=== PATIENT | female | born 1985 | race Two or more races ===

== ENCOUNTER → 2025-08-06 15:53 | Outpatient (AMB) | payer OTHER, SELFPAY ==
--- NOTE | 2025-08-06 15:54 | A.OFFVIS_ITS ---
Intake Visit Reasons: 6m migraine Accompanied by: Spouse Allergies No Known Allergies Allergy (Verified 08/06/25 16:00) Medication List - Last Reconciled 08/06/25 by Eve Cordova CNP atorvastatin 20 mg PO DAILY [id number]-[id number] 50-325-40 mg 1 - 2 tabs PO DAILY 30 days cholecalciferol (vitamin D3) 50 mcg PO DAILY citalopram 10 mg PO DAILY clonazepam 1 mg PO TID PRN doxepin 10 mg PO BEDTIME fludrocortisone mg PO galcanezumab-gnlm (Emgality Pen) 120 mg subcut QMONTH 30 days hydroxyzine HCl 25 mg PO BID ibuprofen 800 mg PO BID PRN ipratropium-albuterol 20-100 mcg/actuation (Combivent Respimat) 1 puff inhalation QID lamotrigine 200 mg PO BID loratadine 10 mg PO DAILY lurasidone 120 mg PO DAILY oxcarbazepine mg PO umeclidinium-vilanterol 62.5-25 mcg/actuation (Anoro Ellipta) 1 ea inhalation DAILY HPI Comments Details: 40-year-old woman with 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 Emgality was not helping as much anymore and headaches were worse. She said she did not understand how she was supposed to manage headaches with only 12 butalbital/month. Migraines were happening about 4x/week with photophobia, sonophobia, nausea, and sometimes vomiting. [facility] Medical History (Updated 08/06/25 @ 15:58 by Eve Cordova CNP) Depression Anxiety Dyskinesia Muscular dystrophy Insomnia Migraine Review of Systems Const Denies chills, Denies daytime sleepiness, Denies difficulty sleeping, Denies fatigue, Denies fever(s), Denies frequent falls, Reports headache(s), Denies increased appetite, Denies poor appetite, Denies snoring, Denies weakness, Denies weight gain and Denies weight loss Eyes Denies loss of vision ENT Denies vertigo, Denies dizziness and Reports headache(s) Card Denies chest pain at rest, Denies chest pain with activity, Denies syncope, Denies leg edema and Denies palpitations Resp Denies snoring GI Denies constipation, Denies heartburn, Denies diarrhea and Denies nausea Denies urinary frequency, Denies urinary incontinence and Denies urinary urgency Musc Denies abnormal gait, Denies numbness and Denies tingling Skin/Breast Denies dry skin and Denies rash Neuro Denies abnormal gait, Denies vertigo, Denies dizziness, Denies syncope, Denies frequent falls, Reports headache(s), Denies lack of coordination, Denies loss of vision, Denies memory loss, Denies numbness, Denies restless legs, Denies seizure-like activity, Denies tingling, Denies paresthesias, Denies tremor(s) and Denies weakness Psych Denies anxiety, Denies depression, Denies auditory hallucinations, Denies memory loss, Denies visual hallucinations and Denies suicidal ideation Endo Denies fatigue and Denies palpitations Physical Exam Const Other: General Appearance:? normal, in no acute distress. Skin:? no rashes, no significant birthmarks. Heart:? S1, S2 normal, no murmurs. Lungs:? clear anteriorly and posteriorly. Extremities:? no edema. Psych:? alert, oriented, cognitive function intact, cooperative with exam. Neuro Other: Mental Status:?Normal attention, orientation, memory and affect.? Cranial Nerves:?Pupils are equal, round and reactive to light. External occular muscles are intact. Visual olmstead are full. Face is symmetrical. Facial sens ations are normal. Tongue is midline. Palate elevates symmetrically. Shoulder shrugging is normal. Hearing to bedside conversation is normal. Sensory Exam:?....? Coordination:?No ataxia,?no titubation.? Gait Exam: Within normal limits. Extrapyramidal System:?No tremor, rigidity with normal facial expressions.? Pronator Drift:?Not present.? Involuntary Movements:?No tremors seen.? Speech:?Normal.? Results Reviewed Results Reviewed: CTA brain at [facility] in Nov 2023: R 3mm cavernous ICA aneurysm, mod cortical fronto-pareital and vermian atrophy MRI brain [facility] at [facility] in May 2023: R basis pontis lesion hyperintense on FLAIR and hypointense on T1, mod b/l parietal cortical atrophy, mild cerebellar atrophy MRA brain at [facility] in 2020: R pontine cavernous malformation, 2mm ICA aneursym CTA brain at [facility] in 2020: 3.5mm R ICA aneurysm. Assessment & Plan Assessment & Plan (1) Basilar migraine: Code(s): G43.109 - Migraine with aura, not intractable, without status migrainosus Category: Medical Plan: Emgality was no longer helping with migraines. Initially, migraines were down to about 2x/week, but were now happening about 4x/week and were associated with photophobia, sonophobia, nausea, and vomiting. She tried and failed multiple other medications including propranalol, depakote, topiramate, Ajovy, Aimovig, and Ubrelvy. She was taking fludrocortisone for low blood pressure, and therefore other blood pressure medications (such as verapamil) were contraindicated. She also reports trying trigger point injections in the past without improvement. She was not interested in Botox due to fear of needles. Stop Emgality. Start Nurtec 75mg 1 tablet every other day, use/side effects reviewed. Start metoclopramide 10mg 1 tablet as needed for nausea/vomiting, use/side effects reviewed. Continue asakokgxwe-VXXM-ejhd 50-325-40mg 1-2 tablets as needed for headache #12 for 30 days. MRI brain ordered given worsening headaches, history of cavernous malformation, ICA aneursym. (2) Migraine without aura: Code(s): G43.009 - Migraine without aura, not intractable, without status migrainosus Category: Medical Qualifiers: Status migrainosus presence: without status migrainosus Intractability: not intractable Qualified Code(s): G43.009 - Migraine without aura, not intractable, without status migrainosus (3) Cavernous malformation: Code(s): Q28.3 - Other malformations of cerebral vessels Category: Medical (4) Cerebral aneurysm: Code(s): I67.1 - Cerebral aneurysm, nonruptured Category: Medical Plan Meds tried: Propranalol, Depakote, Topiramate, cannot take BP meds, Ajovy, Aimovig, Emgality, Ubrelvy Orders: Orders MR head/brain wo con Today G43.109 - Migraine with aura, not intractable, without status migrainosus, I67.1 - Cerebral aneurysm, nonruptured, Q28.3 - Ot her malformations of cerebral vessels Medications: New metoclopramide HCl (Reglan) 10 mg PO DAILY PRN 20 tabs 3RF nausea and vomiting 30 days rimegepant (Nurtec ODT) 75 mg PO Q OTHER DAY 15 tabs 3RF migraine headache 30 days Discontinued galcanezumab-gnlm (Emgality Pen) Discontinued Reason: Doctor's Order 120 mg subcut QMONTH 30 days 1 mL 5RF Coding Level of Care Code Est Pt Level 4 (42811) Diagnoses Basilar migraine G43.109 Migraine without aura and without status migrainosus, not intractable G43.009 Status migrainosus presence: without status migrainosus Intractability: not intractable Cavernous malformation Q28.3 Cerebral aneurysm I67.1
--- OUTSIDE RECORDS SUMMARY | 2025-08-06 18:21 | XMS_ITS | Data Portability ---
Author Organization [place] - [employer] [facility], [facility] Transfer Driver Address [address] [place] [address] Care Team Providers Care Tube Coremaker Name Role Phone RONEY BURGOS Machine Candle Molder PAVEL LUNSFORD Primary Care Provider Unavailabl e Assessment No assessment recorded. Plan of Treatment Reminders Order Date Submit Date Provider Last Modified By Organization Details Last Modified Time Details Appointments None recorded. Lab None recorded. Referral None recorded. Procedures None recorded. Surgeries None recorded. Imaging MR, angiogram, head, w/o contrast - Follow-up lesion noticed previously possible cavernous lesion 2020 021 [facility] (Central Scheduling), [address] [place] [address], [address], 1 13:36:41 US, duplex, venous, lower extremity, unilateral - pain posterior left knee and left calf over the last 3-4 days, rule out DVT versus varicose veins. 2019 020 [facility] (Central Scheduling), [address] [place] [address], [address], 0 14:27:50 Medication Orders Augmentin 875 mg-125 mg tablet 2020 021 [facility], [address] [place] [address], [place], [address], 1 16:14:18 fluconazol e 150 mg tablet 2020 021 [facility], [address] [place] [address], [place], [address], 1 10:05:27 ropinirole 0.5 mg tablet 2019 [email or web address] Not available 0 13:20:47 oxcarbazep ine 300 mg tablet 2019 ajoslin Not available 0 13:20:48 ibuprofen 800 mg tablet 2019 020 ajoslin Not available 0 10:15:41 Patient TargetsNo targets recorded. Patient Instructions Encounter Date Encounter Id Patient Instructions Last Modified By Organization Details Last Modified Time 06/26/2020 [id number] This note was created with the assistance of [employer] speech recognition software and may include typographical or grammatical errors or unintentional words/phrase substitutions Personal protective equipment used during exam [email or web address] Not available 06/28/2020 17:08:53 08/04/2020 [id number] This note was created with the assistance of [employer] speech recognition software and may include typographical or grammatical errors or unintentional words/phrase substitutions. Personal protective equipment used during exam ajoslin Not available 08/04/2020 13:34:36 10/22/2020 [id number] This note was created with the assistance of [employer] speech recognition software and may include typographical or grammatical errors or unintentional words/phrase substitutions Call completed 11:33 a.m., 17 minutes [email or web address] Not available 10/25/2020 08:41:41 11/07/2020 [id number] Acute Sinusitis: Care Instructions Not available 11/07/2020 10:04:00 Total time spent today was 25 minutes which includes a review and interpretation of all labs, tests, consults and medications, medically appropriate examinations and/or evaluation, ordering tests, medications and/or procedures, documenting clinical information in EMR, time spent counseling and educating the patient along with coordination of care. Not available 11/07/2020 10:03:02 Reason for Referral None Reported. Results Created Date Observation Date Name Description Value Unit Range Abnormal Flag Note LastModifiedBy Organization Detail LastModifiedTime 08/04/2008/04/2020 drug scree n, urine creatinine urine (drug screen) 235.0 mg/dL Not Available [address] [place] [address] [place] [address], [address], 08/08/2020 14:04:53 08/04/20 20 08/04/2020 drug scree n, urine amphetamine screen urine Negati ve negati ve Not Available [address] [place] [address], [address], 08/08/2020 14:04:53 08/04/20 20 08/04/2020 drug scree n, urine benzodiazepi jl screen urine Positi ve negati ve abnormal The Benzo diaze pine scree n has poor sensi tivit y for Loraz epam, Midaz olam and Chlor diaze poxid e and may give false negat miguel resul ts for these drugs . Not Available [address] [place] [address], [address], 08/08/2020 14:04:53 08/04/20 20 08/04/2020 drug scree n, urine cocaine screen urine Negati ve negati ve Not Available [address] [place] [address], [address], 08/08/2020 14:04:53 08/04/20 20 08/04/2020 drug scree n, urine methadone screen urine Negati ve negati ve Not Available [address] [place] [address], [address], 08/08/2020 14:04:53 08/04/20 20 08/04/2020 drug scree n, urine opiate screen urine Negati ve negati ve Not Available [address] [place] [address], [address], 08/08/2020 14:04:53 08/04/20 20 08/04/2020 drug scree n, urine THC (cannabinoid ) screen urine Positi ve negati ve abnormal Not Available [address] [place] [address], [address], 08/08/2020 14:04:53 08/04/20 20 08/04/2020 drug scree n, urine oxycodone screen urine Negati ve negati ve Not Available [address] [place] [address] Drawing Station [address] [place] [address], [address], 08/08/2020 14:04:53 08/04/20 20 08/04/2020 drug scree n, urine buprenorphin e screen urine Negati ve negati ve Quali tativ e drug of abuse resul ts are based on immun oscre en proce dures and are not confi rmed. They are for medic al treat ment purpo ses only and must not be used non-m edica lly for emplo yment or legal testi ng. A posit miguel resul t is obtai lucretia for each class of drug at [facility] cut-o ff sondra ntrat ions: Amphe tamin es >1000 ng/ml Benzo diaze pines >200 ng/ml Bupre norph brianda >5 ng/ml Canna binoi ds(TH C) >50 ng/ml Cocai ne >300 ng/ml Metha done >300 ng/ml Opiat es >300 ng/ml Oxyco done >100 ng/ml More infor orlin terrazas is avail able on the [facility] Medic al Staff Benjie l under the Pain Manag ement /Drug s of Abuse Toxic ology Forms tab or by alex cing the Lab direc tly at [phone]. Not Available [address] [place] [address] Drawing Station [address] [place] [address], [address], 08/08/2020 14:04:53 08/04/2008/05/2020 benzo diaze pines , quant urine alprazolam conf, ur Not Detect ed NG/mL Not Available [address] [place] [address] Drawing Station [address] [place] [address], [address], 08/08/2020 14:04:53 08/04/2008/05/2020 benzo diaze pines , quant urine A-hydroxyalp razolam conf, ur Not Detect ed NG/mL Not Available [address] [place] [address] Drawing Station [address] [place] [address], [address], 08/08/2020 14:04:53 08/04/2008/05/2020 benzo diaze pines , quant urine clonazepam conf, ur Not Detect ed NG/mL Not Available [address] [place] [address], [address], 08/08/2020 14:04:53 08/04/20 20 08/05/2020 benzo diaze pines , quant urine lorazepam conf, ur Not Detect ed NG/mL Not Available [address] [place] [address], [address], 08/08/2020 14:04:53 08/04/20 20 08/05/2020 benzo diaze pines , quant urine diazepam conf, ur Not Detect ed NG/mL Not Available [address] [place] [address], [address], 08/08/2020 14:04:53 08/04/20 20 08/05/2020 benzo diaze pines , quant urine nordiazepam conf, ur Not Detect ed NG/mL Not Available [address] [place] [address], [address], 08/08/2020 14:04:53 08/04/20 20 08/05/2020 benzo diaze pines , quant urine oxazepam conf, ur Not Detect ed NG/mL Not Available [address] [place] [address], [address], 08/08/2020 14:04:53 08/04/20 20 08/05/2020 benzo diaze pines , quant urine temazepam conf, ur Not Detect ed NG/mL Not Available [address] [place] [address], [address], 08/08/2020 14:04:53 08/04/20 20 08/05/2020 benzo diaze pines , quant urine drug comment, urine See Text This test was devel oped and its serge tical perfo rmanc e jose cteri stics have been deter mined by [facility]. It has not been clear ed or appro j carlos by the [place] Food and Drug Admin istra tion. The Labor atory is regul ated under CLIA as quali fied to perfo rm high- compl exity testi ng. This repor t is inten ded for the use in clini figueroa monit oring or manag ement of patie nts. It is not inten ded for use in emplo yment -rela driss testmorgan ng. Not Available [address] [place] [address], [address], 08/08/2020 14:04:53 08/04/20 20 08/08/2020 benzo diaze pines , quant urine 7-aminoclona zepam conf, ur 1474 NG/mL Cutof f: 25ng/ mL Note: Clona zepam is a medic ation avail able by [facility] chemo on. 7-Ami noclo nazep am is a metab olite of clona zepam . Not Available [address] [place] [address], [address], 08/08/2020 14:04:53 11/19/19 21 11/19/2020 bun/c reati nine, ratio , serum blood urea nitrogen (BUN) 17 mg/dL 4-18 normal Not Available [address] [place] [address] Draw[address] [place] [address], [address], 11/19/2020 16:45:23 11/19/19 21 11/19/2020 bun/c reati nine, ratio , serum creatinine 0.79 mg/dL 0.00-1 .20 normal Not Available [address] [place] [address], [address], 11/19/2020 16:45:23 11/19/19 21 11/19/2020 bun/c reati nine, ratio , serum est.glomerul ar filtration rate > 60 Units : mL/mi n/1.7 3 m2 Estim ated GFR (eGFR ) vashtiul d not be used for patie nts with acute kidne y injur y or ESRD (crea boubacar e vashtiul d be at stead y state and stabl e to use). eGFR is calcu lated using the 2009 CKD-E PI creat inine equat ion, which is now the recom bora d equat ion to estim ate GFR based on creat inine per lates t KDIGO (Kidn ey Disea se Impro ving Globa l Outco mes) Guide lines . KDIGO recom mends CKD now be class ified based on cause , GFR categ ory, and album inuri a categ ory. GFR categ ories will not be repor driss by the lab for G1 or G2 (eGFR >60). GFR categ ories shoul d be assig lucretia as: eGFR 45-59 = G3a (mild ly to moder ately decre ased) , eGFR 30-44 = G3b (mode ratel y to sever thad decre ased) , eGFR 15-29 G4 (deangelo rely decre ased) , eGFR< 15 G5 (kidn ey failu re). Not Available [address] [place] [address], [address], 11/19/2020 16:45:23 09/02/20 20 09/02/2020 US, elias x, antoine s, lower extre mity, unila [facility] [place] [address] Ultras ound Report Signed Patien t: Arden Leyva sa 7807 : [address]: Magali scanlon EMR ID: [id number] Age/Se x: 35/F E.D. Attend ing: Acct: [id number] Loc: RAD.NA PCP: Pavel Lunsford MD Admit/ Svc Date: Orderi ng Physic yas: Magali scanlon NP Date of Servic e: Proced ure(s) : US venous duplex LE LT Reason for Exam: lt leg r/o dvt pain behind lt knee calf Access ion Number (s): [id number] Fax to: cc: Magali scanlon NP US venous duplex LE LT 020 1:45 PM Compar javier: None Techni que: Compre ssion sterling scale, color Dopple r, and pulse- wave Dopple r sonogr aphy of the left lower extrem ity deep vein system . Findin gs: There is a normal patter n of augmen driss Dopple r flow and compre ssibil ity in the left common femora l, superf icial femora l and poplit eal veins. No fillin g defect s are demons trated . IMPRES ALESSIO: No eviden ce for deep vein thromb osis. Statio n: [id number] Docume nted by: Francesco Martinez MD 1422 KFALKO WSKI [email or web address] [facility] (Radiology) [address] [place] [address], [address], 09/03/2020 06:01:52 11/04/19 21 11/04/2020 MR, angio gram, head, w/o contr ast [facility] Diagno stic Imagin [facility] [place] [address] Magnet ic Resona nce Report Signed Mickey t: Arden Leyva sa 7807 : [address]: Pavel Lunsford EMR ID: [id number] Age/Se x: 35/F E.D. Attend ing: Acct: [id number] Loc: RAD.NA PCP: Pavel Lunsford MD Admit/ Svc Date: Orderi ng Physic yas: Pavel Lunsford MD Date of Servic e: Proced ure(s) : MR angio head wo con Reason for Exam: lesion of brain Access ion Number (s): [id number] Signif icant Fax to: cc: Pavel Lunsford MD MR ANGIOG ORA OF EEK OF MORENO . 11/04/19 12:29 PM HISTOR Y: 35 years Female with lesion of brain COMPAR JAVIER: MRI brain 017 TECHNI QUE: 3D time-o f-flig ht MR angiog ora techni que, 3-D MIP, and sagitt al and weeks l thin sectio n images recons tructe d on an indepe ndent workst ation. FINDIN GS: QUALIT Y: Exam sensit ivity is degrad ed by mickey gomez motion artifa cts STAINED GLASS JOINER AL CAROTI D ARTERI ES (ICA): There is an approx imate 2 mm outpou dallas from the medial margin of the paracl inoid segmen t of the right equine internship al caroti d artery (image 84 and weeks l reform at image 115). This may be a small aneury sm. Differ ential diagno sis includ es vessel tortuo sity and/or motion artifa cts. Left ICA appear s normal . MIDDLE CEREBR AL ARTERI ES (MCA): The M1, M2 and proxim al M3 segmen ts of the middle cerebr al arteri es appear normal . ANTERI OR CEREBR AL ARTERI ES (SHAKIRA): The A1, A2 and proxim al A3 segmen ts of the anteri or cerebr al arteri es appear normal BASILA R ARTERY : Normal . VERTEB RAL ARTERI ES: Normal . FIRE SERVICES PLUMBER IOR CEREBR AL ARTERI ES (FISHING BOAT CAPTAIN): The P1, P2 and proxim al P3 segmen ts of the psychology assistant ior cerebr al arteri es appear normal . CEREBE LLAR ARTERI ES: Normal to the extent they can be assess ed by MRA. No eviden ce of proxim al arteri al thromb us, hemody namica lly signif icant stenos is, aneury sm or vascul ar malfor mation . Other: Cavern ous malfor mation is better apprec iated on previo us MR brain 017. This measur es approx imatel y 10.[address] dimens ion and is grossl y unchan ged compar ed to 017 IMPRES ALESSIO: Approx imate 10.5 mm cavern ous malfor mation in the right mikel, better apprec iated on prior MRI is unchan ged Approx imate 2 mm outpou dallas from the medial margin of the paracl inoid segmen t of the right equine internship al caroti d artery (image 84 and weeks l reform at image 115). This may be a small aneury sm. Differ ential diagno sis includ es vessel tortuo sity and/or motion artifa cts. Exam sensit ivity and specif icity is degrad ed by marked patien t motion artifa cts RECOMM ENDATI ON: Follow -up CT angiog ora of the brain. This repres ents test value SIGNIF ICANT. This report will be commun icated to the [facility] er or flagge d in the ER (Peer Ph[facility] system ) for review by the ED after the report is signed by the radiol ogist. If the report is read on a d or mainor y, it will then be commun icated to the referr ing physic yas/ender keith on the follow ing . Statio n: [id number] 03 Electr onical ly signed on at 1331 by Aftab Gardner MD. [facility] [address] [place] [address], [address], 11/10/2020 19:53:55 11/24/19 21 11/24/2020 CT, angio gram, head, w/wo contr ast [facility] [place] [address] CT Scan Report Signed Patidayanna t: Arden Leyva sa 7807 : [address]: Pavel Lunsford EMR ID: [id number] Age/Se x: 35/F E.D. Attend ing: Acct: [id number] Loc: RAD.NA PCP: Pavel Lunsford MD Admit/ Svc Date: Orderi ng Physic yas: Pavel Lunsford MD Date of Servic e: Proced ure(s) : CT angio head Reason for Exam: headac he/ recomm ended from MRA report Access ion Number (s): [id number] Signif icant Fax to: cc: Pavel Lunsford MD CT ANGIOG ORA OF EEK OF MORENO AND CT BRAIN PERFUS ION WITH IV CONTRA ST. 021 9:30 AM REASON FOR EXAM: 35 years Female with headac he/ recomm ended from MRA report COMPAR JAVIER: MRA head done on 2020 TECHNI QUE: Unenha nced CT of the brain follow ed by CT angiog ora brain with contig uous thin-s ection axial CT images follow ing the admini strati on of IV contra st in the arteri al phase and iterat miguel recons tructi on dose reduct ion techni que. Multip lanar reform ats and MIP images recons tructe d on an indepe ndent workst ation. FINDIN GS: CT OF THE BRAIN: Propor tional promin ence of the cerebr al sulci and ventri cular system is compat ible with mild cerebr al atroph y. There are scatte red hypode nsitie s bilate rally in the fronto pariet al subcor tical and perive ntricu lar white matter compat ible with mild chroni c small vessel ischem ic change s. The soft tissue s, orbits , and bones appear unrema rkable . Parana dandy sinuse s and mastoi d air cells are clear. CT ANGIOG ORA: Administrative Office Clerk al caroti d arteri es (ICAs) : Widely patent bilate rally. 3.5 x 3.1 mm medial outpou dallas from the right paracl inoid ICA corres pondin g to the abnorm ality seen on the prior MRA is consis tent with an aneury sm. Middle Cerebr al Arteri es (MCAs) : The M1, M2 and proxim al M3 segmen ts of the middle cerebr al arteri es appear normal . Anteri or Cerebr al Arteri es (ACAs) : The A1, A2 and proxim al A3 segmen ts of the anteri or cerebr al arteri es appear normal . Anteri or commun icatin g artery (ACOM) : Patent with fenest rated appear ance at its juncti on with the left SHAKIRA. Compensation Administrator ior commun icatin g arteri es (PCOMs ): Not well-v isuali zed bilate rally, likely degene rative or absent . Compensation Administrator ior Cerebr al Arteri es (court stenographer) : The P1, P2 and proxim al P3 segmen ts of the psychology assistant ior cerebr al arteri es appear normal . Basila r Artery :Widel y patent Verteb ral Arteri es:Pat ent bilate rally (left domina nt) Cerebe llar Arteri es: Normal to the extent they can be assess ed by CTA. Dural Venous Sinuse s: Althou gh the study is not timed for venous opacif icatio n, the visual ized major dural venous sinuse s appear patent . No eviden ce of large vessel occlus ion, dissec tion or arteri ovenou s malfor mation . CONCLU ALESSIO: Right paracl inoid ICA aneury sm measur ing up to 3.5 mm. No other aneury sm, large vessel occlus ion or arteri ovenou s malfor mation is identi fied. This repres ents test value SIGNIF ICANT. This report will be commun icated to the provid er or flagge d in the ER (Peer Phyll[facility] system ) for review by the ED after the report is signed by the radiol ogist. If the report is read on a weeken d or holida y, it will then be commun icated to the referr ing physic yas/of fice on the follow ing busine ss day. Prelim inary draft interp retati on perfor med by Dr. Giovanni Lieberman. Statio n: [id number] 05 Electr onical ly signed on at 1156 by Aftab Gardner MD. [facility] [address] [place] [address], [address], 11/25/2020 10:53:49 Result Notes Documentation Provider Name and Address Organization Details Recorded Time Mr, Angiogram, Head, W/o Contrast : [facility] [place] [address] Magnetic Resonance Report Signed Patient: Elida Leyva : [address]: Pavel Lunsford EMR ID: [id number] Age/Sex: 35/F E.D. Attending: Acct: [id number] Loc: RAD.NA PCP: Pavel Lunfsord MD Admit/Svc Date: 11/04/20 Ordering Physician: Pavel Lunsford MD Date of Service: 11/04/20 Procedure(s): MR angio head wo con Reason for Exam: lesion of brain Accession Number(s): [id number] Significant Fax to: cc: Pavel Lunsford MD MR ANGIOGRAM OF EEK OF MORENO. 11/04/2020 12:29 PM HISTORY: 35 years Female with lesion of brain COMPARISON: MRI brain 12/29/2016 TECHNIQUE: 3D [id number] MR angiogram technique, 3-D MIP, and sagittal and coronal thin section images reconstructed on an independent workstation. FINDINGS: QUALITY: Exam sensitivity is degraded by patient motion artifacts INTERNAL CAROTID ARTERIES (ICA): There is an approximate 2 mm outpouching from the medial margin of the paraclinoid segment of the right internal carotid artery (image 84 and coronal reformat image 115). This may be a small aneurysm. Differential diagnosis includes vessel tortuosity and/or motion artifacts. Left ICA appears normal. MIDDLE CEREBRAL ARTERIES (MCA): The M1, M2 and proximal M3 segments of the middle cerebral arteries appear normal. ANTERIOR CEREBRAL ARTERIES (SHAKIRA): The A1, A2 and proximal A3 segments of the anterior cerebral arteries appear normal BASILAR ARTERY: Normal. VERTEBRAL ARTERIES: Normal. POSTERIOR CEREBRAL ARTERIES (FISHING BOAT CAPTAIN): The P1, P2 and proximal P3 segments of the posterior cerebral arteries appear normal. CEREBELLAR ARTERIES: Normal to the extent they can be assessed by MRA. No evidence of proximal arterial thrombus, hemodynamically significant stenosis, aneurysm or vascular malformation. Other: Cavernous malformation is better appreciated on previous MR brain 12/29/2016. This measures approximately 10.5 mm in greatest dimension and is grossly unchanged compared to 12/29/2016 IMPRESSION: Approximate 10.5 mm cavernous malformation in the right mikel, better appreciated on prior MRI is unchanged Approximate 2 mm outpouching from the medial margin of the paraclinoid segment of the right internal carotid artery (image 84 and coronal reformat image 115). This may be a small aneurysm. Differential diagnosis includes vessel tortuosity and/or motion artifacts. Exam sensitivity and specificity is degraded by marked patient motion artifacts RECOMMENDATION: Follow-up CT angiogram of the brain. This represents test value SIGNIFICANT. This report will be communicated to the provider or flagged in the ER (Peer [facility] system) for review by the ED after the report is signed by the radiologist. If the report is read on a weekend or holiday, it will then be communicated to the referring physician/office on the following business day. Station: [id number] Electronically signed on 11/04/20 at 1331 by Aftab Gardner MD. YAKELIN Lunsford MD. [address] [place] [address], [phone], [facility] - [employer] [facility] 11/10/2020 19:53:55 Ct, Angiogram, Head, W/wo Contrast : [facility] [place] [address] CT Scan Report Signed Patient: Elida Leyva : [address]: Pavel Lunsford EMR ID: [id number] Age/Sex: 35/F E.D. Attending: Acct: [id number] Loc: RAD.NA PCP: Pavel Lunsford MD Admit/Svc Date: 11/24/20 Ordering Physician: Pavel Lunsford MD Date of Service: 11/24/20 Procedure(s): CT angio head Reason for Exam: headache/ recommended from MRA report Accession Number(s): [id number] Significant Fax to: cc: Pavel Lunsford MD CT ANGIOGRAM OF EEK OF MORENO AND CT BRAIN PERFUSION WITH IV CONTRAST. 11/24/2020 9:30 AM REASON FOR EXAM: 35 years Female with headache/ recommended from MRA report COMPARISON: MRA head done on November 04, 2020 TECHNIQUE: Unenhanced CT of the brain followed by CT angiogram brain with contiguous thin-section axial CT images following the administration of IV contrast in the arterial phase and iterative reconstruction dose reduction technique. Multiplanar reformats and MIP images reconstructed on an independent workstation. FINDINGS: CT OF THE BRAIN: Proportional prominence of the cerebral sulci and ventricular system is compatible with mild cerebral atrophy. There are scattered hypodensities bilaterally in the frontoparietal subcortical and periventricular white matter compatible with mild chronic small vessel ischemic changes. The soft tissues, orbits, and bones appear unremarkable. Paranasal sinuses and mastoid air cells are clear. CT ANGIOGRAM: Internal carotid arteries (ICAs): Widely patent bilaterally. 3.5 x 3.1 mm medial outpouching from the right paraclinoid ICA corresponding to the abnormality seen on the prior MRA is consistent with an aneurysm. Middle Cerebral Arteries (MCAs): The M1, M2 and proximal M3 segments of the middle cerebral arteries appear normal. Anterior Cerebral Arteries (ACAs): The A1, A2 and proximal A3 segments of the anterior cerebral arteries appear normal. Anterior communicating artery (ACOM): Patent with fenestrated appearance at its junction with the left SHAKIRA. Posterior communicating arteries (PCOMs): Not well-visualized bilaterally, likely degenerative or absent. Posterior Cerebral Arteries (court stenographer): The P1, P2 and proximal P3 segments of the posterior cerebral arteries appear normal. Basilar Artery:Widely patent Vertebral Arteries:Patent bilaterally (left dominant) Cerebellar Arteries: Normal to the extent they can be assessed by CTA. Dural Venous Sinuses: Although the study is not timed for venous opacification, the visualized major dural venous sinuses appear patent. No evidence of large vessel occlusion, dissection or arteriovenous malformation. 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 No other aneurysm, large vessel occlusion or arteriovenous malformation is identified. This represents test value SIGNIFICANT. This report will be communicated to the provider or flagged in the ER ([employer] system) for review by the ED after the report is signed by the radiologist. If the report is read on a weekend or holiday, it will then be communicated to the referring physician/office on the following business day. Preliminary draft interpretation performed by Dr. Giovanni Lieberman. Station: [id number] Electronically signed on 11/24/20 at 1156 by Aftab Gardner MD. CHANA Lunsford MD. [address] [place] [address], [phone], [facility] [employer] 11/25/2020 10:53:49 Problems Name Problem SNOMED Code Status Onset Date Resolution Date Notes Provider Name and Address Organization Details Recorded Time Mixed anxiety and depressi ve disorder 908591492 Active 10/19 followed by Fito barber [facility] [employer] [facility] 7 09:56:06 Allergic rhinitis caused by tree pollen 91431291 Active 2015 Letty barber [facility] [employer] [facility] 6 12:18:12 Left upper quadrant pain 963832740 Completed 201501/24/2017 Removal Reason: lenin Bingham [address] [place] [address], [phone], [facility] [employer] [facility] 7 19:59:54 Gastroes ophageal reflux disease 855846063 Active 2015 Letty barber [facility] [employer] [facility] 6 12:18:29 Chronic back pain 299993321 Active 2015 Letty barber, [facility] 6 12:18:40 Paroxysm al supraven tricular tachycar talita 27102176 Active 2015 Letty barber, [facility] 6 09:35:28 Vertigo 830502261 Active 2015 Letty barber, [facility] 6 09:35:41 Costal chondrit is 38781629 Active 2015 Letty barber, [facility] 6 09:35:49 Restless legs syndrome 61337293 Active 2015 Letty barber, [facility] 6 11:10:23 Agorapho dillan with panic attacks 868476880 [facility] 13:15[facility] Amenorrh ea 67793007 Active 10/19 followed by [employer] Laura camp [facility] 7 13:13:05 Fracture of tibia 14251271 Completed 201501/24/2017 Removal Reason: resolved Laura Bingham [address] [place], [address], [facility] 7 19:59:12 Nicotine dependen ce 11073510 Active 2015 Megha Ramirez CNP [address] [place] [address], [phone], [facility] 6 13:59:54 Abnormal cervical Papanico laou smear 091545062 Active 2015 LGISL, + HPV by [employer] 06/14/16 Megha Ramirez CNP [address] [place] [address], [phone], [facility] 6 16:04:37 Vitamin D deficien 81647443 Active 2015 Megha Ramirez CNP [address] [place] [address], [address], [facility] [employer] [facility] 6 08:16:32 Abdomina l pain 14421664 Active 2015 epigastr ic Laura Christenseno [address] [place] [address], [phone], [facility] [employer] [facility] 7 19:57:36 Migraine 23974938 Active 10/19 sees a neurolog ist, Dr. Villegas Laura [facility] [employer] [facility] 7 10:17:40 Unintent ional weight loss 546624478 Active 2016 Laura Christenseno [address] [place] [address], [phone], [facility] [employer] [facility] 7 16:15:27 Underwei ght 430675395 Active 201601/24/17 BMI 15.7 Laura Christenseno [address] [place] [address], [phone], [facility] [employer] [facility] 7 19:24:22 Cannabis dependen ce 57790998 Active 01/17 doesn't help with nausea or appetite . No Medical Marijuan a card. Laura Christenseno [address] [place] [address], [phone], [facility] [employer] [facility] 7 19:23:56 Nausea 808302895 Active 2016 Laura Christenseno [address] [place] [address], [phone], [facility] [employer] [facility] 7 19:58:42 Irregula r periods 25073569 Active 2016 has one period a year, usually July. Laura Christenseno [address] [place] [address], [phone], [facility] [employer] [facility] 7 20:01:17 Paresthe belia 48914427 Active 2016 Megha Ramirez CNP [address] [place] [address], [phone], [place] [employer] 7 17:25:23 Dyspnea 627757910 Active 2016 Megha Ramirez CNP [address] [place] [address], [phone], [facility] [employer] 7 08:34:18 Low back pain 411860131 Active 2016 Megha Ramirez CNP [address] [place] [address], [phone], [facility] [employer] 7 08:37:34 Female urinary stress incontin ence 69873038 Active 2017 Megha Ramirez CNP [address] [place] [address], [address], [facility] [employer] 8 09:17:16 Excessiv e somnolen ce 032783417 Active 2017 Megha Ramirez CNP [address] [place] [address], [phone], [facility] [employer] 8 09:31:42 Blood glucose outside referenc e range 367714447 Active 2017 Megha Ramirez CNP [address] [place] [address], [phone], [facility] [employer] 8 08:38:54 Cervico- occipita l neuralgi a 95808408 Active 2018 Pavel Lunsford MD. [address] [place] [address], [phone], [facility] [employer] 9 12:01:21 Carpal tunnel syndrome 36560058 Active 2018 Pavel Lunsford MD. [address] [place] [address], [phone], [facility] [employer] 9 12:01:23 Allergic rhinitis 45573752 Active 2019 Pavel Lunsford MD. [address] [place] [address], [phone], [facility] [employer] 0 13:39:30 Acute maxillar y sinusiti s 92749916 Active 2020 NATALY CARROLL, ANDRA [address] [place], [phone], [facility] [employer] [facility] 1 10:02:47 Notes:Some problems listed i n Documents: #[id number], #[id number] could not be added to this patient's chart. Please review these documents and add these problems to the patient's chart manually as needed. Problem Notes None recorded. Procedures Surgical History Date Name Laterality Status Provider Name and Address Organization Details Recorded Time 11/16/19 17 EGD completed Aydin Metz DO [address] [place] [address], [phone], [facility] [employer] [facility] 11/22/2016 22:16:57 Appendectomy completed Laura Pelayo [facility] 10/05/2016 10:00:43 Unlisted px leg/ankle completed Lettygage Garcia [facility] 06/18/2016 08:19:55 [facility] 06/18/2016 08:20:07 Imaging Results None recorded. Procedure Notes None recorded. Medical Equipment None Reported. Allergies Allergen ID Allergen Name Allergen Category Reaction Reaction Severity Criticality Documentation Date Start Date Code Code System Note Provider Name and Address Organization Details Recorded Time 451597 adhesive tape environme nt,medica tion rash Not available Not available 02/01/2019 aPvel Lunsford MD. [address] [place], [phone], [facility] [employer] [facility] 9 09:39:45 009724 doxycycli ne Not available nausea severe Not available 09/24/20192016 3640 RxNorm NATALY CARROLL, ANDRA [address] [place], [phone], [facility] [employer] [facility] 9 14:25:06 472380 gabapenti n medicatio n Not available Not available Not available 10/22/2020 67093 RxNorm incre ased pain nause a Pavel Lunsford MD. [address] [place], [phone], [facility] 1 11:28:28 75534 morphine medicatio n Not available Not available Not available 06/16/2016 7052 RxNorm Letty Nate barber, [facility] 6 12:16:36 83960 tree and shrub pollen environme nt,medica tion Not available Not available Not available 06/16/2016 Letty barber, [facility] 6 12:16:50 86697 Compazine medicatio n itching moderate Not available 01/24/2017201654 6 RxNorm made nause a worse Laura Bingham [address] [place] [address], [phone] [place] [address] 7 19:10:58 Medications Name Sig Start Date Stop Date Status Note LastModified by Organization Details LastModified Time melatonin 5mg tabs 06/18 completed Not Available Not Available Not Available vitamin d 50 mcg (1999 ut) tabs active Not Available Not Available Not Available amoxicill in 500 mg capsule TAKE 1 CAPSULE BY MOUTH EVERY 8 HOURS FOR 7 DAYS active Not Available Not Available No t Available medroxypr ogesteron e 10 mg tablet TAKE 1 TABLET BY MOUTH DAILY FOR 5 DAYS IF NO MENSES FOR 3 MONTHS. TAKE PREGNANC Y TEST FIRST. CALL OFFICE IF NO MENSES active Not Available Not Available No t Available buspirone 5 mg tablet 02/01 completed Not Available Not Available Not Available lamotrigi ne 150 mg tablet TAKE ONE TABLET BY MOUTH TWICE A DAY 05/31 completed Not Available Not Available Not Available neomycin- polymyxin -hydrocor t 3.5 mg/mL-10, 000 unit/mL-1 % ear solution 05/18 completed Not Available Not Available Not Available oxcarbaze pine 150 mg tablet TAKE ONE TABLET BY MOUTH EVERY DAY 08/04 completed Not Available Not Available Not Available potassium chloride ER 10 mEq capsule,e xtended release active Not Available Not Available Not Available clonidine HCl 0.1 mg tablet TAKE ONE TABLET BY MOUTH THREE TIMES A DAY NEEDED 02/01 completed Not Available Not Available Not Available prednison e 10 mg tablet 08/08 completed Not Available Not Available Not Available doxycycli ne hyclate 100 mg capsule Take 1 capsule twice a day by oral route. 09/08 completed Not Available Not Available Not Available atorvasta tin 20 mg tablet TAKE 1 TABLET BY MOUTH AT BEDTIME active Not Available Not Available No t Available lamotrigi ne 200 mg tablet TAKE 2 TABLETS BY MOUTH ONCE DAILY active Not Available Not Available No t Available Carafate 100 mg/mL oral suspensio n TAKE 10 ML BY MOUTH 3 TO 4 TIMES DAILY (BEFORE MEALS AND AT BEDTIME) 01/24 completed stopped, not able to fit eat in with meals Not Available Not Available Not Available nabumeton e 750 mg tablet TAKE ONE TABLET BY MOUTH TWO TIMES A DAY 02/02 completed headache s Not Available Not Available Not Available trazodone 50 mg tablet 06/26 completed Not Available Not Available Not Available cetirizin e 10 mg tablet TAKE ONE TABLET BY MOUTH EVERY MORNING AT 4AM active Not Available Not Available No t Available ibuprofen 800 mg tablet TAKE 1 TABLET BY MOUTH TWO TIMES A DAY NEEDED FOR PAIN active Not Available Not Available No t Available fluconazo le 150 mg tablet Take 1 tablet every 72 hours by oral route as directed for 6 days. 2020 active Not Available Not Available Not Avai lable citalopra m 10 mg tablet active Not Available Not Available Not Available prochlorp erazine maleate 5 mg tablet TAKE ONE TO TWO TABLETS BY MOUTH EVERY 4 HOURS NEEDED FOR NAUSEA/V OMITING 01/24 completed Not Available Not Available Not Available ondansetr on HCl 4 mg tablet TAKE ONE TABLET BY MOUTH EVERY 6 HOURS; NEEDED FOR NAUSEA active Not Available Not Available No t Available prednison e 20 mg tablet active Not Available Not Available Not Available medroxypr ogesteron e 5 mg tablet TAKE ONE TABLET BY MOUTH EVERY DAY FOR THE NEXT 20 DAYS active Not Available Not Available No t Available clonazepa m 1 mg tablet TAKE ONE TABLET BY MOUTH THREE TIMES A DAY; NEEDED active Not Available Not Available No t Available Advair Diskus 100 mcg-50 mcg/dose powder for inhalatio n Inhale 1 puff twice a day by inhalati on route as directed for 14 days. 02/01 completed Not Available Not Available Not Available topiramat e 25 mg tablet 08/04 completed Not Available Not Available Not Available metronida zole 500 mg tablet 09/08 completed Not Available Not Available Not Available oxcarbaze pine 300 mg tablet TAKE 2 TABLETS BY MOUTH TWO TIMES A DAY active Not Available Not Available No t Available butalbita l-acetami nophen-ca ffeine 50 mg-325 mg-40 mg tablet TAKE 1 TO 2 TABLETS BY MOUTH ONCE DAILY NEEDED active Not Available Not Available No t Available potassium chloride 20 mEq/15 mL oral liquid TAKE 7.5ML BY MOUTH TWO TIMES A DAY active Not Available Not Available No t Available amoxicill in 875 mg tablet Take 1 tablet twice a day by oral route. 05/31 completed Not Available Not Available Not Available potassium chloride ER 20 mEq tablet,ex tended release(p art/cryst ) 05/18 completed Not Available Not Available Not Available amitripty line 25 mg tablet 02/01 completed Not Available Not Available Not Available estradiol 1 mg tablet 06/26 completed Not Available Not Available Not Available trazodone 100 mg tablet TAKE ONE TABLET BY MOUTH AT BEDTIME 10/05 completed Not Available Not Available Not Available meclizine 25 mg tablet TAKE ONE TABLET BY MOUTH THREE TIMES A DAY NEEDED active Not Available Not Available No t Available benzonata te 100 mg capsule Take 1 capsule 3 times a day by oral route as directed for 5 days. 02/01 completed Not Available Not Available Not Available doxycycli ne monohydra te 100 mg capsule 09/08 completed Not Available Not Available Not Available trazodone 150 mg tablet 10/02 completed Not Available Not Available Not Available triamcino lone acetonide 0.1 % topical ointment active Not Available Not Available Not Available ropinirol e 0.5 mg tablet Take 1 tablet 3 times a day by oral route. active Not Available Not Available No t Available buspirone 10 mg tablet TAKE ONE TABLET BY MOUTH TWO TIMES DAILY 01/29 completed Not Available Not Available Not Available gabapenti n 300 mg capsule TAKE THREE CAPSULES BY MOUTH THREE TIMES A DAY 06/26 completed Not Available Not Available Not Available oxcarbaze pine 600 mg tablet TAKE 1 TABLET BY MOUTH THREE TIMES A DAY active Not Available Not Available No t Available midodrine 2.5 mg tablet 05/18 completed Not Available Not Available Not Available zolpidem 5 mg tablet TAKE 1 TABLET BY MOUTH ONCE DAILY AT BEDTIME active Not Available Not Available No t Available norethind tony acetate 5 mg tablet 06/26 completed Not Available Not Available Not Available mirtazapi ne 15 mg tablet 05/31 completed Not Available Not Available Not Available gabapenti n 100 mg capsule TAKE TWO CAPSULES BY MOUTH THREE TIMES A DAY 02/02 completed Not Available Not Available Not Available clobetaso l 0.05 % topical ointment active Not Available Not Available Not Available methylpre dnisolone 4 mg tablets in a dose pack TAKE DIRECTED ON PACKAGE INSERT 10/02 completed Not Available Not Available Not Available fluticaso ne propionat e 50 mcg/actua tion nasal spray,chavo pension ADMINIST ER 1 SPRAY INTO EACH NOSTRIL ONCE DAILY active Not Available Not Available No t Available fludrocor tisone 0.1 mg tablet TAKE 1 TABLET BY MOUTH THREE TIMES A DAY active Not Available Not Available No t Available risperido ne 1 mg tablet TAKE 1-2 TABLETS BY MOUTH AT BEDTIME 10/05 completed Not Available Not Available Not Available loratadin e 10 mg tablet TAKE 1 TABLET BY MOUTH DAILY NEEDED FOR ALLERGIE S active Not Available Not Available No t Available amoxicill in 875 mg-potass ium clavulana te 125 mg tablet Take 1 tablet every 12 hours by oral route for 7 days. active Not Available Not Available No t Available Ventolin HFA 90 mcg/actua tion aerosol inhaler INHALE 1 PUFF EVERY 4 HOURS NEEDED FOR SHORTNES S OF BREATH OR WHEEZING active Not Available Not Available No t Available buspirone 15 mg tablet Take one tablet by mouth three times daily 01/29 completed Not Available Not Available Not Available neomycin- polymyxin -hydrocor t 3.5 mg-10,000 unit/mL-1 % ear drops,chavo p INSTILL 4 DROPS INTO AFFECTED EAR(S) BY OTIC ROUTE 3 TIMES PER DAY 05/18 completed Not Available Not Available Not Available Miconazol e-3 200 mg-2 % (9 gram) vaginal kit Once daily 05/18 completed Not Available Not Available Not Available potassium chloride ER 10 mEq tablet,ex tended release(p art/cryst ) 05/18 completed 09/24/19 PT STATES NOT TAKING EH Not Available Not Available Not Available multivita min 1 TABLET ONCE A DAY 01/24 completed Not Available Not Available Not Available FreeStyle Lite Strips Testing daily as directed . DX: E16.2 10/02 completed Not Available Not Available Not Available cholecalc iferol (vitamin D3) 50 mcg (2,000 unit) tablet TAKE 1 TABLET BY MOUTH DAILY active Not Available Not Available No t Available D3-2000 50 mcg (2,000 unit) capsule TAKE ONE CAPSULE BY MOUTH DAILY active Not Available Not Available No t Available butalbita l-acetami nophen-ca ffeine 50 mg-300 mg-40 mg capsule TAKE ONE CAPSULE BY MOUTH EVERY 4 HOURS NEEDED 06/18 completed Not Available Not Available Not Available lurasidon e 120 mg tablet TAKE 1 TABLET BY MOUTH ONCE DAILY WITH FOOD active Not Available Not Available No t Available Enskyce 0.15 mg-0.03 mg tablet 03/02 completed Not Available Not Available Not Available Latuda 60 mg tablet 06/18 completed Not Available Not Available Not Available Boost High Protein 0.06 gram-1 kcal/mL oral liquid Take 237 mL twice a day by oral route for 30 days. 2019 active Not Available Not Available Not Avai lable Boost 0.04 gram-1 kcal/mL oral liquid Take 237 mL twice a day by oral route as directed . 02/02 completed Not Available Not Available Not Available Emgality Pen 120 mg/mL subcutane ous pen injector INJECT 1ML UNDER THE SKIN ONCE A MONTH active Not Available Not Available No t Available Vitals Date Recorded Body height Provider Name an d Address Organization Details Last Updated DateTime 10/22/2020 161.29 cm Estephania Cano CMA [place] - [facility] [employer] [facility] 10/22/2020 11:12:43 Date Recorded Body height Body mass index (BMI) Body weight Body temperature Provider Name and Address Organization Details Last Updated DateTime 11/07/2020 161.29 cm 17.6 kg/m2 88983.83 g 98.6 [degF] Estephania Cano CMA [facility] [employer] [facility] 11/07/2020 09:30:33 Date Recorded Body height Body mass index (BMI) Body weight Body temperature Heart rate Oxygen saturation Oxygen saturation in Arterial blood by Pulse oximetry Systolic And Diastolic Provider Name and Address Organization Details Last Updated DateTime 0 161.29 cm 17.3 kg/m2 37064.3 4 g 97.3 [degF] 79 /min 99 % 99 % 104/78 mm[Hg] [facility] [employer] [facility] 0 09:52:41 Date Recorded Body height Body mass index (BMI) Body weight Body temperature Heart rate Oxygen saturation Oxygen saturation in Arterial blood by Pulse oximetry Systolic And Diastolic Provider Name and Address Organization Details Last Updated DateTime 0 161.29 cm 17 kg/m2 58976.2 6 g 97.3 [degF] 87 /min 97 % 97 % 96/58 mm[Hg] [facility] 0 13:05:48 Date Recorded Body height Body mass index (BMI) Body weight Body temperature Heart rate Oxygen saturation Oxygen saturation in Arterial blood by Pulse oximetry Systolic And Diastolic Provider Name and Address Organization Details Last Updated DateTime 0 161.29 cm 17.5 kg/m2 72153.6 4 g 97.3 [degF] 86 /min 95 % 95 % 122/80 mm[Hg] [facility] [employer] [facility] 0 15:34:21 Social History Question Answer Notes LastModified by Dianping Details LastModified Time Tobacco Smoking Status Current Every Day Smoker Letty Garcia [facility] [employer] [facility] 06/18/2016 08:17:33 What Is Your Level Of Caffeine Consumption? Moderate Coffee- Up To 1 Cup A Day; Energy Drinks- Up To 1 A Day Information not available 06/18/2016 Which Illicit Or Recreational Drugs Have You Used? Marijuana 01/17 Daily Use Since High School Information not available 01/24/2017 What Was The Date Of Your Most Recent Tobacco Screening? 09/08/2018 Information not available 04/25/2019 Sex: Female Functional Status Question Answer Note LastModified by Dianping Details LastModified Time What is your level of alcohol consumption? 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 None Information not available 06/18/2016 Mental Status None recorded. Family History Relationship Description Onset Age of this Age Resolved Age Notes LastModified by Organization Details LastModified Time Father Heart disease also blood disord er unknow n type ajoslin Not available 02/05/2019 11:59:17 Father Hypertensive disorder cpiechowski Not available 06/03 08:17:13 Father Chronic obstructive pulmonary disease cpiechowski Not available 06/03 08:17:22 Mother Anxiety ajoslin Not available 0 02/05/2019 11:58:49 Notes:No children 2 sisters healthy Medical History No medical history recorded. Gynecological History Statement/Question Response Menses Monthly N None Frequency of Cycle 1-2 times a year Date of LMP 07/08/2016 Obstetrics History GPAL:G 0 P 0 0 0 0 Immunizations Vaccine Type Date Status Note Provider Nam e and Address Organization Details Recorded Time meningococcal MCV4, unspecified formulation 0 completed Letty Garcia null, [facility] 06/17/2016 11:12:53 TST-PPD intradermal 0 completed Letty Radha null, [facility] 06/17/2016 11:14:05 Tdap 0 completed Letty Radha null, [facility] 06/17/2016 11:13:55 DTP 4 completed Letty Radha null, [facility] 06/17/2016 11:16:07 DTP 5 completed Letty Radha null, [facility] 06/17/2016 11:16:16 DTP 5 completed Letty Radha null, [facility] 06/17/2016 11:16:27 DTP 6 completed Letty Radha null, [facility] 06/17/2016 11:16:42 DTP 9 completed Letty Pieradha null, [facility] 06/17/2016 11:16:49 polio, unspecified formulation 4 completed Letty Radha null, [facility] 06/17/2016 11:17:15 polio, unspecified formulation 5 completed Letty Piechowski null, [facility] 06/17/2016 11:17:26 polio, unspecified formulation 5 completed Letty Piechowski null, [facility] 06/17/2016 11:17:33 polio, unspecified formulation 6 completed Letty Piechowski null, [facility] 06/17/2016 11:17:41 polio, unspecified formulation 9 completed Letty Piechowski null, [facility] 06/17/2016 11:17:54 MMR 5 completed Letty Piechowski null, [facility] 06/17/2016 11:18:22 MMR 6 completed Letty Piechowski null, [facility] 06/17/2016 11:18:30 Hib, unspecified formulation 6 completed Letty Piechowski null, [facility] 06/17/2016 11:18:49 Hep B, unspecified formulation 6 completed Letty Piechowski null, [facility] 06/17/2016 11:19:21 Hep B, unspecified formulation 6 completed Letty Piechowski null, [facility] 06/17/2016 11:19:32 Hep B, unspecified formulation 6 completed Letty Piechowski null, [facility] 06/17/2016 11:19:41 Td(adult) unspecified formulation 8 completed Letty Piechowski null, [facility] 06/17/2016 11:20:00 Influenza, MDCK, quadrivalent, preservative 9 completed Not Available [facility] 10/20/2019 02:41:56 Influenza, MDCK, quadrivalent, preservative 9 completed Not Available [facility] 10/20/2019 02:41:56 Influenza, MDCK, quadrivalent, preservative 0 completed Ilda Abebe LPN null, [facility] 08/04/2020 15:49:45 Influenza, split virus, trivalent, preservative 8 completed Letty barber [facility] [employer] [facility] 08/08/2018 10:15:25 Influenza, split virus, trivalent, PF 6 completed Not Available [facility] 10/20/2019 02:39:20 Past Encounters Encounter ID Performer Location Encounter Start Date Encounter Closed Date Diagnosis/Indication Diagnosis SNOMED-CT Code Diagnosis ICD10 Code Diagnosis IMO Codes Diagnosis Note [id number] Robson Monet MD [facility] [address] [place] [address] 06/18/2016 08:01:29 06/18/2016 09:36:50 Seasonal allergic rhinitis 962025373 J30.2 Restart Flonase which has helped her in the past. Increased frequency of urination 827554534 R35.0 Increased urinary frequency for past couple months. Will check U/A. f/u next month Vertigo 738376129 R42 Pt with long hx of dizziness with standing; states has had a couple episodes of syncope. Check orthostati cs today. Had Holter monitoring in January 2010 with some arrythmias and at times abrupt changes in heart rate according to report. There were some correlatio ns with pt sx but not always. Orthostati cs normal today. Discuss further next visit.EKG with sinus arrhythmia ; stable compared to 12/04/10. Screening for disorder 262876664 Z13.9 Arthritis 8119500 M19.90 Pt continues to c/o diffuse body aches and joint pain. s/p 21 days of doxy in May 2016; Lyme test at that time neg. Will recheck and discuss next visit. Vitamin D deficiency 347 76046 E55.9 Skin lesion 56613520 L98 .9 Pt states has been seen by [facility] in [place] and needs referral for biopsy of lesion on labia. Nicotine dependence 5629 4008 F17.200 Discussed smoking cessation and resources given. Smart smoking discussed. More than 3 minutes spent discussing cessation. Mixed anxi ety and depressive disorder 644287425 F41.8 Followed by [facility]; pt states meds do not always control her sx but will cont f/u. Underweight 743515769 R6 3.6 At one point she weighed 125 per pt but according to 2011 records [address] by Dr Monet her wt was 92.5 pounds. [id number] Aydin Metz DO [address] [address] 07/20/2016 08:00:23 07/20/2016 08:39:48 Vitamin D deficiency 87589884 E55.9 level on 06/18/16 26; take D3 2000 iu daily Vertigo 312529077 R42 Pt with long hx of dizziness with standing; states has had a couple episodes of syncope; seem worse with rapid position change. Orthostati cs normal last visit. Had Holter monitoring in January 2010 with some arrythmias and at times abrupt changes in heart rate according to report, but did not necessaril y correlate with sx. Today states past improvemen t with meclizine. Active or passive immunization 315432010 Z23 Mixed anxi ety and depressive disorder 662540269 F41.8 Establishi ng with new mental health provider; pt states meds do not always control her sx. Nicotine dependence 5629 4008 F17.200 Not ready to quit. [id number] Laura Gar ipasic, [employer]IN[employer] COUNSELOR [address] [address] 10/05/2016 09:02:49 10/05/2016 09:48:15 Abdominal pain 47768421 R10.9 nausea, vomiting, pain, R/o hepatitis, gallbladde r disease, weight loss x 7-10 days Does not appear dehydrated on exam, see UA results on dipstick pt unable to stay for lab work today F/U in 5 days after lab and US done [id number] Aydin Metz DO [address] [address] 11/22/2016 14:58:23 11/22/2016 15:32:35 Gastritis 4870586 K29.70 31 year old female with history of abdominal pain, here for F/U on EGD. EGD 11/16/[address] Burgos, biopsy shows chronic antral gastritis. Final note with recommenda tions not available. -citrus picker medication from Dr. Burgos at pharmacy (probably PPI, don't have the note)-F/u if no improvemen t in pain, nausea, with Dr. Burgos's office-figueroa l if needs refill on compazine for nauseaF/U in 2 mo. Unintentio nal weight loss 338268538 R63.4 -wt in HS was 129-wt 07/18 was 99-today is 91.5, BMI 16-pt to ask provider at [facility] if Remeron is a possibilit y for medication -refer to nutrition (11/22/16)- will discuss 2 week trial of a gluten and dairy free diet at next visit-F/U in 2 mo. [id number] Aydin Metz DO [facility] [address] [place] [address] 01/24/2017 16:01:45 01/24/2017 16:45:11 Underweight 985876674 R63.6 -lost another pound, BMI 15.7-wants to gain 20#-had upper GI, WNL, 11/16/16, Dr. Burgos-safety aide haroon nausea, insurance only covers Zofran 30 pills/osorio h. Worse in AM so doesn't eat breakfast. -no problem with eating when not nauseated- no lactose intoleranc e, no bloating, diarrhea-c onstipatio n, does not take anything daily-occa sional intestinal spasm-safety aide haroon epigastric pain, not on a PPI or H2 felisa-no rash-had a MRA with and without contrast of abdomen 01/11/17, normal, ordered by Dr. Burgos-made a F/U appt with Dr. Burgos for mid January-Nutrit ion appt on 01/27/17 at [facility]-consi hussain celiac disease, IBS/consti pation-F/U with Dr. Metz in 1 weeks [id number] Aydin Metz DO [facility] [address] [place] [address] 01/28/2017 11:24:35 01/28/2017 12:18:04 Unintentional weight loss 342757748 R63.4 Likely the result of IBS with food intoleranc es causing malabsorpt ion. Approach will be to eliminate or reduce those foods causing or contributi ng to caloric malabsorpt ion. Irritable bowel syndrome 51847253 K58.9 Likely etiology of patient's unintentio nal weight loss is IBS with food intoleranc es causing malabsorpt ion.- encouraged becoming familiar with FODMAPS 01/28/17- provided list of low glycemic index, low roughage vegetables . In addition to vegetables , encouraged meat and olive oil. Discussed volume purchases at [employer] to get 10-20% discounts- encouraged eliminatin g gluten and dairy from her diet. Reviewed that healing of small bowel can take several months to a year.- encouraged a low acid diet and avoiding all sources of caffeine, including chocolate- encouraged continuing with nutritioni st- f/u in January. Encouraged using patient portal for any questions she might have Spent >50% of this 40 min clinic visit counseling on foods, food preparatio n, food sources, diet plans, how bowel heals, monitoring stools, and decreasing allergens in her environmen t. Seasonal a llergic rhinitis 709282054 J30.2 - continue Flonase which has helped her in the past.- encouraged hypoallerg enic laundry detergents and hypoallerg enic body soaps - mentioned dust mite covers for her bed pillows- discussed issue of cat dander and suggested ultimately having a hair rather than fur dog. [id number] Robson Monet MD [facility] [address] [place] [address] 03/29/2017 16:01:19 03/29/2017 16:49:49 Unintentional weight loss 807636888 R63.4 Wt 99# 07/20/16; gradual decline since then with BMI now 15.3. Extensive GI evaluation by Dr Burgos initiated 11/08/16 negative; nutritioni st consult did not help. Pt could not tolerate gluten free diet and dislikes whole grains; GI eval did not demonstrat e gluten sensitivit y. GI consult suspects daily morning vomiting due to med side effects. PPI and carafate did not help. Mixed anxi ety and depressive disorder 513290602 F41.8 Following with Katherine castrooc. on clonidine 0.1 mg tid (pt states takes bid), clonazepam 1 mg bid prn, lamotrigin e 150 mg 2 tabs every morning, latuda 120 mg daily, zolpidem 5 mg prn-admits to 2 times per week. She has appt soon for f/u and strongly suggest she discuss her somnolence and continued wt loss with them, as polypharma cy may be contributi ng. Will be appreciati ve of any input from neuro second opinion. Migraine 11437079 G43.90 9 Currently on gabapentin 400 mg tid but continues to take daily med for headache, either fioricet or plain tylenol. Send for second opinion regarding H/A management . Excessive somnolence 372 327754 R40.0 Suspect due to polypharma cy in addition to daily marijuana use. Pt denies other recreation al meds or hx of IV drug use. She is an articulate historian but does not seem to understand the effect numerous meds may be having. If she continues to lose wt, anticipate side effects will increase. Nicotine dependence 5629 4008 F17.200 Not ready to quit. With abnormal lung sound and continued wt loss f/u pending CXR. Paresthesia 93102588 R20 .2 Two week history evening chin numbness with ear discomfort ; grossly normal ENT eval today. Neuro can further eval and cervical spine xray ordered. [id number] Lena Thorpe MD [address] [address] 08/16/2017 08:00:23 08/16/2017 08:41:24 Unexplained weight loss 658302986 R63.4 Continues with wt loss despite starting carnation instant breakfast 1 qd; will see what supplement s ins may pay for as recommend she increase to bid. Still concern regarding polypharma cy contributi ng to somnolence and decreased appetite with wt loss. GI did thorough workup and also concerned about her meds; CT abd 02/17/17, MR angiogram 01/11/17,sm all bowel series with capsule 03/22/17 all neg for contributi ng pathology. Nicotine dependence 5629 4008 F17.200 1/2 ppd plus marijuana at least 2 times per day; understand s needs to quit but not committed. Mixed anxi ety and depressive disorder 456150917 F41.8 Following with Katherine herrera. on clonidine 0.1 mg tid (pt states takes prn-unclea r # of times qd), clonazepam 1 mg bid prn, lamotrigin e 150 mg 2 tabs every morning, latuda 120 mg daily, zolpidem 5 mg prn-admits to 2 times per week. Her psych provider, Brenda Vivori does not believe her meds are a problem. Will have her try changing lamotrigin e intake to evening Amenorrhea 83384759 N91. 2 States menses have started due to med [facility] is meghann Rodriguez records Dyspnea 477220119 R06.02 16+ years of smoking; abnormal lung sounds today. Follow up pending results repeat CXR; consider CT chest 2/2 wt loss. Vitamin D deficiency 347 07139 E55.9 Taking no supplement ; high risk for osteoporos is 2/2 wt loss. Low back pain 863674323 M54.5 Eval by ortho who believes 2/2 wt loss; Follow up pending results xrays to ensure no pathology related to wt loss. Migraine 88734677 G43.[address] Chung; did not get to neuro appt in [place] in May. [id number] Cristal Mao MD [address] [address] 02/02/2018 08:51:19 02/02/2018 09:44:16 Vitamin D deficiency 59603369 E55.9 Taking D3 2000 iu qd; high risk for osteoporos is 2/2 wt loss. Nicotine dependence 5629 4008 F17.200 1/4-1/2 ppd plus marijuana at least 2 times per day; understand s needs to quit but not committed. 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 Female uri nary stress incontinence 07936661 N39.3 Recent in last few months. Discussed Kegels and bladder training. Will schedule f/u with [facility]; if exam normal and sx persist will send to urology. Unintentio nal weight loss 685493164 R63.4 Slightly improved since last visit. Extensive GI evaluation by Dr Burgos initiated 11/08/16 negative; nutritioni st consult did not help. GI has suggested in the past that daily morning vomiting due to med side effects. GI eval in [facility] scheduled for April. Excessive somnolence 372 946948 R40.0 Suspect due to polypharma cy in addition to daily marijuana use. Pt denies other recreation al meds or hx of IV drug use. She is an articulate historian but does not seem to understand the effect numerous meds may be having. Refer for sleep med consult. Advised to decrease meclizine 25 to 1/2 tab during the day; she is resistant to lowering any other med doses. [id number] Cristal Mao MD [address] [address] 05/09/2018 07:58:07 05/09/2018 09:19:25 Mixed anxiety and depressive disorder 399542080 F41.8 Had followed with Brenda Jaramillo but was d/c when she no showed 3 appts; advised we will refill her psych meds for a few months only until re-establi ses with new psych. Will have pharmacy send refill request when needed. Syncope 587256523 R55 Reported syncope, pt attributes to high blood sugar although this would not be expected for bs of 200, more apt to be with low blood sugar. One lab with glucose of 57, A1C 5.3 04/15/18. Concern her wt loss issues contributi ng. Need to r/o cardiac etiology. Blood gluc ose outside reference range 070257758 R73.09 Pt reports elevated blood sugars; lab documented glucose of 57, rest have been normal. Discussed glucose tolerance test and she is willing to proceed. Suggest she take a zofran prior to glucose load with her tendency to vomit. Consider endocrine eval. Abdominal pain 61498144 R10.9 most likely mucsculosk eletal based on hx and exam today. Unintentio nal weight loss 509007247 R63.4 Continues to fluctuate with extensive GI eval neg in the recent past. Nicotine dependence 5629 4008 F17.200 1/4ppd plus marijuana at least 2 times per day; understand s needs to quit and states she is working on it. [id number] Cristal Mao MD [address] [address] 08/08/2018 09:48:15 08/08/2018 10:49:22 Adult health examination 482757543 Z00.00 This is a 33 year old female in moderately good health. - encouraged regular exercise, 30 minutes 5x per week - encouraged regular dental and eye exams - screening labs updated - vaccinatio ns up to date - f/u for next annual H&P in 1 year Bronchitis 85493572 J40 Cold sx on and off for a month; rx with doxy and course of steroids. Lungs CTA today. Understand s the importance of smoking cessation to help this. Nicotine dependence 5629 4008 F17.200 1/4 ppd plus marijuana at least 2 times per day; understand s needs to quit and states she is working on it. More than 3 minutes spent discussing cessation; hopefully will be able to get better handle on anxiety with [facility] Flannery counseling . [id number] Cristal Mao MD [address] [address] 09/08/2018 10:13:51 09/08/2018 11:17:11 Upper respiratory infection 07214026 J06.9 Differenti als: bacterial vs allergic vs viral. Suspect viral given no improvemen t w/ antibiotic s. Patient declines rapid strep, which is also a considerat ion if throat not improved. She reports being a smoker and encouraged to decrease w/ URI symptoms. I am agreeable to request for chest xray state to r/o pneumonia or causation for concern. Today she is 98% room air. Agreeable to initiate Flonase, Zyrtec, Tylenol, throat lozenges, warm salt water gargles, and Advair 100/50 (directed to rinse mouth w/ water after each use). Continue w/ the Proair inhaler. Tessalon Perles (directed to keep out of reach of children and pets), OTC Robitussin cough syrup. Pending x-ray results, antibiotic s may be indicated. Will call w/ results. If worsening symptoms directed to urgent care or ER. Patient verbalizes agreement and understand ing of direction provided during today's OV. [id number] Pavel Lunsford MD. [facility]ust[facility]ial Worker s [address] [place] [address] 02/01/2019 08:38:56 02/01/2019 09:44:43 Adult health examination 556684711 Z00.00 Will need to review records as available with close follow-up here. Fortunatel y, no acute problems today Gastroesop hageal reflux disease 188438339 K21.0 Liquid and masses in H2 blockers preferred over PPI med Abdominal pain 79108908 R10.9 We will need to review records. Apparently , no definite diagnosis Underweight 645638701 R6 3.6 She reports always has been thin but tries to have healthy diet and does not have anorexia. Migraine 19304062 G43.90 9 Continue with neurology. Mixed anxi ety and depressive disorder 362372034 F41.8 Continue with neurology. Carpal serene kirill syndrome 74487242 G56.00 Continue with neurology. Cervico-oc cipital neuralgia 06370113 M54.81 Continue with neurology. [id number] Pavel Lunsford MD. [facility]ust[facility]ial Worker s [address] [place] [address] 02/23/2019 08:28:51 02/23/2019 09:41:48 Syncope 139851554 R55 Increasing fludrocort isone dose seems reasonable . Discussed with the patient does not need to limit salt/sodiu m Gastroesop hageal reflux disease 585122492 K21.0 Liquid antacids and H2 blockers preferred over PPI med Underweight 312599737 R6 3.6 She reports always has been thin but tries to have healthy diet and does not have anorexia. Migraine 11510430 G43.90 9 Continue with neurology. Depressive disorder 3548 9007 F33.9 Continue with counselor Smoker 44604161 F17.200 Continue NicoDerm patches [id number] Roney Prince MD. [facility] Worker s [address] [place] [address] 03/02/2019 13:46:42 03/02/2019 15:14:46 Urinary tract infectious disease 00532215 N39.0 will try amoxcillin as patient might be . will get urine culture as well [id number] Pavel Lunsford MD. [facility]ial Worker s [address] [place] [address] 05/31/2019 15:30:46 05/31/2019 16:45:26 Idiopathic hypotension 378532255 I95.0 Mixed anxi ety and depressive disorder 146098114 F41.8 Continue with neurology. She also reports other diagnoses including bipolar disorder, OCD, PTSD, severe anxiety. Paroxysmal supraventricular tachycardia 49856121 I47.1 Continue with cardiology Hypoglycemia 937898333 E 16.2 Discussed appropriat e diet Smoker 20457015 F17.200 Continue NicoDerm patches Headache 89563781 R51 Continue with neurology. [id number] Robbie Maldonado MD. [facility] Cust[facility]ial Worker s [address] [place] [address] [place] [address] 09/24/2019 14:04:00 09/24/2019 14:36:40 Acute otitis media 6922580 H66.91 - likely acute otitis media of right ear- will start Augmentin twice daily x 7 days- will start Medrol dose pack to reduce inflammati on- continue ibuprofen every 6-8 hours as needed for pain- please call office if symptoms don't improve or if symptoms start to worsen.- care instructio ns given to patient today. [id number] Pavel Lunsford MD. [facility] Cust[facility]ial Worker s [address] [place] [address] [place] [address] 10/02/2019 08:22:51 10/02/2019 09:13:43 Candidiasis of vagina 38872907 B37.3 Symptoms consistent with vaginitis following antibiotic use. Fluconazol e would interact with one of her other meds and so we will use vaginal Monistat Fatigue 97506831 R53.83 Uncertain cause. Feeling sleepy after eating, uncertain cause.She does not describe dumping syndrome. Irregular periods 344965 07 N92.6 His follow-up with gynecology Mixed anxi ety and depressive disorder 611416394 F41.8 Continue with Counselor through [facility] She also reports other diagnoses including bipolar disorder, OCD, PTSD, severe anxiety. Paroxysmal supraventricular tachycardia 94449526 I47.1 Continue with cardiology [id number] Pavel Lunsford MD. [facility] Nicolette Custodial Worker s [address] [place] [address] [place] [address] 10/08/2019 15:47:47 10/08/2019 16:42:03 Otitis externa 3785697 H60.91 No major symptoms and minimal findings. Will treat for suspected minor otitis externa. Call back if symptoms change or worsen, or if additional problems develop. Consider ENT consultati on Adult th examination 650876289 Z00.00 Numerous long-term issue seem generally stable [id number] Pavel Lunsford MD. [facility] Bland Custodial Worker s [address] [place] [address] [place] [address] 01/29/2020 09:28:19 01/29/2020 11:34:51 Allergic rhinitis caused by tree pollen 37285445 J30.1 She has used inhaler periodical ly and needs refill Amenorrhea 74362489 N91. 2 Continue with gynecology Chronic back pain 189194 002 G89.29 We will try to avoid opioid medication Migraine 20311188 G43.90 9 Continue with neurology. Nicotine dependence 5629 4008 F17.200 Not motivated to stop smoking at this time Adult heal th examination 743714365 Z00.00 Numerous long-term issues seem generally stable. Her mood seems a little better today. Discussed appropriat e measures to reduce weeks virus risk [id number] Pavel Lunsford MD. [facility] Nicolette Custodial Worker s [address] [place] [address] [place] [address] 05/15/2020 10:43:10 05/15/2020 15:55:43 Unintentional weight loss 741812403 R63.4 Perhaps we will be able to take who Boost Left flank pain 47683477 9 R10.9 Symptoms suggestive of renal colic. No stone captured however. Needs imaging Chronic back pain 794509 002 G89.29 Will try to avoid opioid medication Migraine 42702007 G43.90 9 Continue with neurology. Mixed anxi ety and depressive disorder 139249225 F41.8 Continue with Counselor through [facility] She also reports other diagnoses including bipolar disorder, OCD, PTSD, severe anxiety. Vitamin D deficiency 347 66395 E55.9 Recent levels are normal. Continue supplement [id number] Pavel Lunsford MD. [facility] Nicolette Custodial Worker s [address] [place] [address] [place] [address] 06/26/2020 09:32:33 07/01/2020 12:28:46 Headache 92710437 R51 Uses some ibuprofen and Fioricet for severe headache Amenorrhea 84845869 N91. 2 Continue with gynecology Restless l egs syndrome 78098162 G25.81 Continue current medication Underweight 838071508 R6 3.6 She reports always has been thin but tries to have healthy diet and does not have anorexia. Agoraphobi a with panic attacks 782763179 F40.01 Continue with counseling . Continue current medication Mixed anxi ety and depressive disorder 021373002 F41.8 Continue with Counselor through [facility] She also reports other diagnoses including bipolar disorder, OCD, PTSD, severe anxiety. Paroxysmal supraventricular tachycardia 75810329 I47.1 Continue with cardiology [id number] Pavel Lunsford MD. [facility] Nicolette Custodial Worker s [address] [place] [address] [place] [address] 08/04/2020 12:59:54 08/05/2020 07:57:03 Mixed anxiety and depressive disorder 237641626 F41.8 Continue with Counselor through [facility] She reports other diagnoses including bipolar disorder, OCD, PTSD. Restless l egs syndrome 99544271 G25.81 Continue current medication Underweight 452737283 R6 3.6 She reports always has been thin but tries to have healthy diet and does not have anorexia. Vitamin D deficiency 347 13586 E55.9 Recent levels are normal. Continue supplement Gastroesop hageal reflux disease 196829333 K21.9 No medication s for this currently Allergic rhinitis 945851 04 J30.9 Migraine 00792107 G43.90 9 Ibuprofen is helpful. Additional ly needs Fioricet at times [id number] Robbie Maldonado MD. [facility] Custodial Worker s [address] [place] [address] 09/01/2020 15:24:20 09/01/2020 16:27:45 Pain in left knee 4814244518 45242 M25.562 - less likely a Ornelas's cyst or achilles tendonitis . Pain of left calf 925497 6087 325225 M79.662 - will check left lower extremity venous duplex to rule out DVT. Varicose v eins of left lower limb 3335741160 3128003 I83.92 - possible painful varicose veins versus DVT given no erythema, swelling or warmth to the limb.- will check left lower extremity venous duplex.- continue to use OTC NSAIDs as needed.- continue to use warm moist compress or heating pad as needed.- keep the leg elevated as much as possible.- patient was instructed to call the office if symptoms don't improve or start to worsen. [id number] Pavel Lunsford MD. [facility] Custodial Worker s [address] [place] [address] 10/22/2020 11:12:10 10/27/2020 13:07:44 Headache 86107689 R51.9 Lesion of brain 25647333 8 G93.9 [id number] Robbie Maldonado MD. [facility] Custodial Worker s [address] [place] [address] 11/07/2020 09:29:36 11/07/2020 11:37:38 Acute maxillary sinusitis 93628638 J01.00 - symptoms likely from a sinus infection. - will treat with augmentin twice daily x 7 days.- will prescribe fluconazol e for vulvovagin al candiasis prevention .- increase oral water intake to stay well hydrated.- okay for OTC ibuprofen or tylenol as needed for mild-to-mo derate pain, aches, fevers, chills or sore throat.- patient was instructed to call the office if symptoms don't improve or start to worsen. Health Concerns Section Related Observation LastModified by Organization Detai ls LastModified Time None Recorded Concern Status LastModified by Organization Details LastModified Time None Recorded Advance Directives Directive None Recorded Payers Insurance Date Sequence Insurance Name Policy Number Policy Berry Covered Member ID Berry Member ID Guarantor Name 11/07/2020 1 [place] [facility] PLAN Elida A Colleen [id number] Elida A [facility] 02/26/2025 1 [facility]LY [facility] (MEDICAID HMO) Elida A Autumn [id number] Elida A Autumn 12/27/2024 [place] 21 Elida A Autumn [id number] Elida A Autumn 12/27/2024 HSN OVER 21 Elida A Autumn [id number] Elida A Autumn 11/07/2020 1 [place] [facility] Elida A Colleen [id number] Elida A Autumn Notes Date Note Type Note Provider Name and Address Organization Details Recorded Time 06/26/2020 text/html Medical record and laboratory results and consultations and imaging reviewed.Medication list and allergy list reviewed carefully and updated. No additional illnesses or injuries. Has gone off gabapentin. Is now hoping to get prescriptions from this office since her neurologist has closed practice. She has a migraine headache about 15 times a month. Relies on FioricetShe had very adverse effects from Imitrex No major GI symptoms, currently, although just cannot seem to gain weight. No vomiting, diarrhea, GI bleeding. Meds for mood are prescribed by Dr. Sarmiento, [facility] Pavel Lunsford MD. [address] [place] [address], [place], [address], [facility] - [employer] [facility] 06/29/2020 08:43:20 08/04/2020 text/html Medical record and laboratory results and consultations and imaging reviewed.Medication list and allergy list reviewed carefully and updated. No additional illnesses or injuries. She has been taking Boost, but weight is down a little. She is upset right now because her 19-year-old cat is dying. This affects her appetite. No major GI symptoms, currently, although just cannot seem to gain weight. No vomiting, diarrhea, GI bleeding. Meds for mood are prescribed by Dr. Sarmiento, [facility] Ilda Abebe LPN [facility] [employer] [facility] 08/04/2020 15:50:57 09/01/2020 text/html Patient is a 35 y/o female established patient seen today in the office for a problem visit. Patient states that for the past 3 days she has had pain behind her left knee and left calf. She states the pain started on Tuesday (3 days ago). She states that it hurts to touch her left calf. She denies any exacerbating factors or recent injuries that may have contributed to her pain. She denies any LLE warmth, swelling or erythema. NATALY CARROLL NP [address] [place], [address], [facility] [employer] [facility] 09/01/2020 16:24:06 10/22/2020 text/html Telemedicine visit during pandemic shutdown 11:15 a.m. Medical record and laboratory results and consultations and imaging reviewed. Medication list and allergy list reviewed carefully and updated. She continues to have some bad headaches. She is gone off gabapentin, which should be causing adverse effects. Also, was off Imitrex and Topamax. Headaches are horrible at times. She reports that has some kind of vascular lesion noted previously. No illnesses or injuries. Mood is okay. Pavel Lunsford MD. [address] [place], [address], [facility] [employer] [facility] 10/25/2020 08:42:28 11/07/2020 text/html Patient is a 35 y/o female established patient seen today for a problem visit. A phone call was done today in lieu of an office visit due to limited [id number]-be-mwsd appointments secondary to the coronavirus/COVID-1 9 pandemic. Patient verbally consents to this telehealth visit today. Patient called stating that for the past 2 days she has been sneezing a lot. She states that she might be getting a sinus infection. She states her face hurt around her eyes and her throat is getting sore. She states having sinus congestion, sinus drainage which is causing her to have a productive cough. She states no fevers, chills, SOB or wheezing. NATALY CARROLL, ANDRA [address] [place], [address], [facility] [employer] [facility] 11/07/2020 10:04:25 OBGyn Episode No OBEpisode recorded.
== END ==
LOC: HO.HSM 15:53
PROVIDERS: Visit Provider Registered Nurse
DX: G43.109 Migraine with aura, not intractable, without status migrainosus (principal); G43.009 Migraine without aura, not intractable, without status migrainosus; Q28.3 Other malformations of cerebral vessels; I67.1 Cerebral aneurysm, nonruptured
CPT/HCPCS: 99214